=== PATIENT | female | born 1955 | race Caucasian/White ===

== ENCOUNTER 2025-01-28 19:19 | Emergency (ER) | payer BC ==
[~2025-01-28] VITALS: Ht 157.5 cm; Wt 67.1 kg
[2025-01-28 20:15] LABS: BASOPHILS ABSOLUTE AUTO 0.03 K/mm3 (0.00-0.23); BASOPHILS PERCENT AUTO 1 % (0-2); EOSINOPHILS ABSOLUTE AUTO 0.12 K/mm3 (0.00-0.68); EOSINOPHILS PERCENT AUTO 3 % (0-6); Hematocrit 34.8 % (33.0-51.0); Hemoglobin 11.4 g/dL (11.5-16.0); IMMATURE GRAN ABSOLUTE AUTO 0.08 K/mm3 (0.00-0.10); IMMATURE GRAN PERCENT AUTO 2 % (0-1); LYMPHOCYTES ABSOLUTE AUTO 0.98 K/mm3 (0.84-5.20); LYMPHOCYTES PERCENT AUTO 23 % (21-46); MONOCYTES ABSOLUTE AUTO 0.71 K/mm3 (0.16-1.47); MONOCYTES PERCENT AUTO 17 % (4-13); Mean Corpuscular HGB Conc 32.8 g/dL (31.5-36.5); Mean Corpuscular Volume 90 fL (80-100); NEUTROPHILS ABSOLUTE AUTO 2.28 K/mm3 (1.96-9.15); NEUTROPHILS PERCENT AUTO 54 % (41-73); NRBC ABSOLUTE 0.00 K/mm3 (0.00-0.02); NRBC Auto 0.0 /100 WBC (0.0-0.2); Platelet Count 177 K/mm3 (150-400); RDW Coefficient Variation 13.3 % (11.7-14.2); RDW Standard Deviation 43.8 fL (35.1-46.3)
[2025-01-28] MEDS ORDERED: TIZA4 PO (20:17)
[2025-01-28] MEDS ORDERED: PREG300 PO (20:17)
[2025-01-28 20:42] LABS: Alanine Aminotransfer (ALT/SGP 34.0 U/L (12-78); Albumin, Blood 3.3 g/dL (3.4-5.0); Albumin/Globulin Ratio 1.2 (0.8-1.8); Anion Gap 7.0 mmol/L (3-11); Aspartate Aminotrans (AST/SGOT 33.0 U/L (12-37); Bilirubin, Total 0.3 mg/dL (0.1-1.0); Blood Urea Nitrogen 20.0 mg/dL (8-24); CO2, Blood 27.0 mmol/L (21-32); Calcium, Blood 8.2 mg/dL (8.5-10.1); Chloride, Blood 112.0 mmol/L (98-108); Creatinine, Blood 1.2 mg/dL (0.40-1.00); Globulin, Blood 2.8 g/dL (2.2-4.0); Glucose, Blood 70.0 mg/dL (70-99); Potassium, Blood 3.7 mmol/L (3.5-5.5); Sodium, Blood 142.0 mmol/L (136-145); Total Protein, Blood 6.1 g/dL (6.4-8.2)
[2025-01-28] MEDS ORDERED: DiphenhydrAMINE HCl 50 MG/ML 1ML Vial IV ONE (22:05)
[2025-01-28] MEDS ORDERED: Prochlorperazine Edisylate 10 mg Vial IV ONE (22:05)
[2025-01-28] MEDS ORDERED: Ketorolac Tromethamine 15mg Vial IV ONE (22:05)
== END 2025-01-28 23:35 | disposition home or self-care (01) ==
LOC: ER 19:19
PROVIDERS: Emergency Medicine
DX: R51.9 Headache, unspecified (principal)
CPT/HCPCS: 70450; 80053; 85025; 93005; 93010; 96374; 96375; 99284-25; J0780; J1200; J1885

== ENCOUNTER 2025-04-23 14:25 | Inpatient (IN) | payer BC ==
[~2025-04-23] VITALS: Ht 160 cm; Wt 66.4 kg
[~2025-04-23 14:25] MED LIST: PREG300 PO; TIZA4 PO
[2025-04-23] MEDS ORDERED: FLU VACC TS2025(65UP)/MF59C/PF 45 MCG/0.5 ML SYRINGE IM SCH (16:05)
[2025-04-23] MEDS ORDERED: CefTRIAXone Sodium 1,000 MG in NS 100 ML IV SCH (17:00)
[2025-04-23] MEDS ORDERED: NS 1,000 ML IV SCH (17:00)
[2025-04-23 18:46] VITALS: BP 125/66
--- NOTE | 2025-04-23 19:14 | NUR ---
pt to room at 1845. pleasant, alert. husb at bedside. pt coughing. vss. iv infusing at 125 per orders. pt [facility] has recently dropped blood sugars from normal to 40's. advised jennifer hernandez. pt lungs crackles bases. r/a. pt [facility] has about 5 more days left on monitoring. bed in low position, call lite in reach, calls approp
[2025-04-23] MEDS ORDERED: Guaifenesin/Dextromethorphan Syrup 5 ML UDC PO PRN (20:25)
[2025-04-24 00:24] VITALS: BP 119/76
[2025-04-24 03:47] VITALS: BP 110/74
[2025-04-24 04:36] LABS: Hematocrit 27.1 % (33.0-51.0); Hemoglobin 9.0 g/dL (11.5-16.0); Mean Corpuscular HGB Conc 33.2 g/dL (31.5-36.5); Mean Corpuscular Volume 87 fL (80-100); NRBC ABSOLUTE 0.00 K/mm3 (0.00-0.02); NRBC Auto 0.0 /100 WBC (0.0-0.2); Platelet Count 210 K/mm3 (150-400); RDW Coefficient Variation 13.2 % (11.7-14.2); RDW Standard Deviation 42.4 fL (35.1-46.3)
[2025-04-24 05:07] LABS: Anion Gap 7.0 mmol/L (3-11); Blood Urea Nitrogen 11.0 mg/dL (8-24); CO2, Blood 28.0 mmol/L (21-32); Calcium, Blood 7.9 mg/dL (8.5-10.1); Chloride, Blood 106.0 mmol/L (98-108); Creatinine, Blood 0.79 mg/dL (0.40-1.00); Glucose, Blood 86.0 mg/dL (70-99); Potassium, Blood 3.7 mmol/L (3.5-5.5); Sodium, Blood 137.0 mmol/L (136-145)
--- NOTE | 2025-04-24 05:32 | NUR ---
SHIFT SUMMARY: PT AOX4, IND/ SBA IN THE ROOM JUST TO MANAGE LINES. HACKING, NONPRODUCTIVE COUGH, WHICH HAS BEEN CAUSING HER DISCOMFORT. PROVIDER NOTIFIED, DANIELLA ORDERED WHICH WE HAVE BEEN GIVING Q4 WITH SOME RELIEF. PT ABLE TO GET SOME SLEEP. SATTING WELL ON RA, VSS. TOLERATING MEDICATIONS WELL. NO ACUTE OVERNIGHT EVENTS. PT IN BED RESTING, BED IN LOWEST POSITION, CALL LIGHT IN REACH, CONTINUING CARE.
[2025-04-24 07:22] VITALS: BP 109/83
[2025-04-24] MEDS ORDERED: Enoxaparin 30 MG/0.3 ML SYR SC SCH (09:00)
[2025-04-24] MEDS ORDERED: Albuterol HFA200 ACT/6.7 GM INH INH PRN (10:30)
[2025-04-24 11:12] LABS: Influenza A/2009-H1 Not Detected (NOT DETECT); SARS-Cov-2 (COVID-19), BioFire Not Detected (NOT DETECT)
[2025-04-24 11:32] VITALS: BP 111/70
[2025-04-24] MEDS ORDERED: BENZ100A PO (13:39)
[2025-04-24 16:29] VITALS: BP 116/74
--- NOTE | 2025-04-24 18:35 | NUR ---
SHIFT SUMMARY PATIENT ALERT AND INTERACTIVE. CONTINUES TO HAVE COUGHING SPELLS. SPUTUM AND RESPIRATORY PANEL COLLECTED. IS AND FLUTTER PROVIDED TO PATIENT AND EDUCATION GIVEN. PATIENT ABLE TO AMBULATE IN THE ROOM INDEPENDENTLY. EDUCATION PROVIDED RELATED TO CONDITION.
[2025-04-24 20:09] VITALS: BP 119/78
[2025-04-25 00:42] VITALS: BP 117/80
--- NOTE | 2025-04-25 05:34 | NUR ---
SHIFT SUMMARY: PT AOX4 IND IN THE ROOM. PLEASANT, CALLS APPROPRIATELY, COOPERATIVE IN CARE. COUGH HAS BEEN PERSISTENT ALTHOUGH MORE PRODUCTIVE THAN YESTERDAY PER PT. STILL CAUSING A LOT OF DISCOMFORT FROM THE COUGHING. TESSALON GIUSEPPE AND ROBAVAIN GIVEN PRN. PT TOLERATING MEDICATIONS WELL. NO ACUTE OVERNIGHT EVENTS. PT IN BED SLEEPING, BED IN LOWEST POSITION, CALL LIGHT IN REACH. CONTINUING CARE.
[2025-04-25 05:56] VITALS: BP 107/68
[2025-04-25 07:26] VITALS: BP 118/80
[2025-04-25] MEDS ORDERED: Enoxaparin 40 MG/0.4 ML SYR SC SCH (09:00)
[2025-04-25] MEDS ORDERED: GUAI600T33 PO (11:04)
[2025-04-25] MEDS ORDERED: DOXY100 PO (11:04)
[2025-04-25] MEDS ORDERED: ALBU90OI INH (11:05)
--- NOTE | 2025-04-25 14:16 | NUR ---
DISCHARGE SUMMARY PATIENT DISCHARGE TO HOME AT 1350. PRINTED AND REVIEWED DISCHARGE INSTRUCTIONS WITH PATIENT, PATIENT VERBALIZED UNDERSTANDING. ALERT ORIENTED X4, VSS. TOLERATED PO AND VOIDING. DENIED PAIN. CHECK BELONGINGS IN ROOM AND RETURNED TO PATIENT. PATIENT LEFT VIA WHEELCHAIR WITH PEGGY NEWMAN.
== END 2025-04-25 13:50 | disposition home or self-care (01) | DRG 871 ==
LOC: ER 14:25 → MEDS 16:02
PROVIDERS: ADMIT Internal Medicine
DX: A41.89 Other specified sepsis (principal); J12.89 Other viral pneumonia; J96.01 Acute respiratory failure with hypoxia; J44.0 Chronic obstructive pulmonary disease with (acute) lower respiratory infection; F31.9 Bipolar disorder, unspecified; E78.5 Hyperlipidemia, unspecified; M19.90 Unspecified osteoarthritis, unspecified site; R65.20 Severe sepsis without septic shock; J20.6 Acute bronchitis due to rhinovirus; Z87.891 Personal history of nicotine dependence; Z86.19 Personal history of other infectious and parasitic diseases; Z88.5 Allergy status to narcotic agent; Z79.899 Other long term (current) drug therapy
CPT/HCPCS: 0202U; 36415; 80048; 83605; 83880; 85027; 87070; 87205; 93005; 93010; 94640; 94664; 94760; 99285; A9270; C1751; J0456; J0696; J1650; J7030; J7050

== ENCOUNTER 2025-06-10 01:00 | Emergency (ER) | payer BC ==
[~2025-06-10] VITALS: Ht 154.9 cm; Wt 65.8 kg
[~2025-06-10 01:00] MED LIST changes: +ALBU90OI INH; +BENZ100A PO; +DOXY100 PO; +GUAI600T33 PO
[2025-06-10] MEDS ORDERED: NS 1,000 ML IV SCH (01:10)
[2025-06-10 01:25] LABS: BASOPHILS ABSOLUTE AUTO 0.01 K/mm3 (0.00-0.23); BASOPHILS PERCENT AUTO 0 % (0-2); EOSINOPHILS ABSOLUTE AUTO 0.12 K/mm3 (0.00-0.68); EOSINOPHILS PERCENT AUTO 5 % (0-6); Hematocrit 30.4 % (33.0-51.0); Hemoglobin 9.7 g/dL (11.5-16.0); IMMATURE GRAN ABSOLUTE AUTO 0.04 K/mm3 (0.00-0.10); IMMATURE GRAN PERCENT AUTO 2 % (0-1); LYMPHOCYTES ABSOLUTE AUTO 0.91 K/mm3 (0.84-5.20); LYMPHOCYTES PERCENT AUTO 35 % (21-46); MONOCYTES ABSOLUTE AUTO 0.46 K/mm3 (0.16-1.47); MONOCYTES PERCENT AUTO 17 % (4-13); Mean Corpuscular HGB Conc 31.9 g/dL (31.5-36.5); Mean Corpuscular Volume 89 fL (80-100); NEUTROPHILS ABSOLUTE AUTO 1.10 K/mm3 (1.96-9.15); NEUTROPHILS PERCENT AUTO 42 % (41-73); NRBC ABSOLUTE 0.00 K/mm3 (0.00-0.02); NRBC Auto 0.0 /100 WBC (0.0-0.2); Platelet Count 105 K/mm3 (150-400); RDW Coefficient Variation 14.4 % (11.7-14.2); RDW Standard Deviation 46.7 fL (35.1-46.3)
[2025-06-10 01:44] LABS: Alanine Aminotransfer (ALT/SGP 645.0 U/L (12-78); Albumin, Blood 2.9 g/dL (3.4-5.0); Albumin/Globulin Ratio 1.4 (0.8-1.8); Anion Gap 7.0 mmol/L (3-11); Aspartate Aminotrans (AST/SGOT 379.0 U/L (12-37); Bilirubin, Total 0.5 mg/dL (0.1-1.0); Blood Urea Nitrogen 23.0 mg/dL (8-24); CO2, Blood 28.0 mmol/L (21-32); Calcium, Blood 7.4 mg/dL (8.5-10.1); Chloride, Blood 107.0 mmol/L (98-108); Creatinine, Blood 1.05 mg/dL (0.40-1.00); Globulin, Blood 2.0 g/dL (2.2-4.0); Glucose, Blood 81.0 mg/dL (70-99); Potassium, Blood 3.9 mmol/L (3.5-5.5); Sodium, Blood 138.0 mmol/L (136-145); Total Protein, Blood 4.9 g/dL (6.4-8.2)
[2025-06-10 02:19] LABS: Acetaminophen, Random 6.2 ug/mL (10.0-30.0)
[2025-06-10] MEDS ORDERED: HYDHCL25 PO (02:23)
== END 2025-06-10 04:19 | disposition home or self-care (01) ==
LOC: ER 01:00
PROVIDERS: Emergency Medicine
DX: I95.9 Hypotension, unspecified (principal); L29.9 Pruritus, unspecified; R42 Dizziness and giddiness; T40.2X5A Adverse effect of other opioids, initial encounter; T45.0X5A Adverse effect of antiallergic and antiemetic drugs, initial encounter; D61.818 Other pancytopenia; R74.01 Elevation of levels of liver transaminase levels; Z88.5 Allergy status to narcotic agent; Z79.899 Other long term (current) drug therapy
CPT/HCPCS: 80053; 80320; 83605; 84484; 85025; 93005; 93010; 96360; 99285-25; A9270; G0480; J7030

== ENCOUNTER 2025-06-13 15:43 | Emergency (ER) | payer BC ==
[~2025-06-13] VITALS: Ht 157.5 cm; Wt 65.8 kg
[~2025-06-13 15:43] MED LIST changes: +HYDHCL25 PO
[2025-06-13 16:09] LABS: BASOPHILS ABSOLUTE AUTO 0.02 K/mm3 (0.00-0.23); BASOPHILS PERCENT AUTO 1 % (0-2); EOSINOPHILS ABSOLUTE AUTO 0.13 K/mm3 (0.00-0.68); EOSINOPHILS PERCENT AUTO 4 % (0-6); Hematocrit 28.4 % (33.0-51.0); Hemoglobin 9.1 g/dL (11.5-16.0); IMMATURE GRAN ABSOLUTE AUTO 0.05 K/mm3 (0.00-0.10); IMMATURE GRAN PERCENT AUTO 2 % (0-1); LYMPHOCYTES ABSOLUTE AUTO 1.06 K/mm3 (0.84-5.20); LYMPHOCYTES PERCENT AUTO 33 % (21-46); MONOCYTES ABSOLUTE AUTO 0.66 K/mm3 (0.16-1.47); MONOCYTES PERCENT AUTO 20 % (4-13); Mean Corpuscular HGB Conc 32.0 g/dL (31.5-36.5); Mean Corpuscular Volume 90 fL (80-100); NEUTROPHILS ABSOLUTE AUTO 1.32 K/mm3 (1.96-9.15); NEUTROPHILS PERCENT AUTO 41 % (41-73); NRBC ABSOLUTE 0.00 K/mm3 (0.00-0.02); NRBC Auto 0.0 /100 WBC (0.0-0.2); Platelet Count 137 K/mm3 (150-400); RDW Coefficient Variation 14.5 % (11.7-14.2); RDW Standard Deviation 48.0 fL (35.1-46.3)
[2025-06-13 16:37] LABS: Alanine Aminotransfer (ALT/SGP 262.0 U/L (12-78); Albumin, Blood 2.9 g/dL (3.4-5.0); Albumin/Globulin Ratio 1.4 (0.8-1.8); Anion Gap 7.0 mmol/L (3-11); Aspartate Aminotrans (AST/SGOT 60.0 U/L (12-37); Bilirubin, Total 0.2 mg/dL (0.1-1.0); Blood Urea Nitrogen 22.0 mg/dL (8-24); CO2, Blood 24.0 mmol/L (21-32); Calcium, Blood 8.0 mg/dL (8.5-10.1); Chloride, Blood 110.0 mmol/L (98-108); Creatinine, Blood 1.03 mg/dL (0.40-1.00); Globulin, Blood 2.0 g/dL (2.2-4.0); Glucose, Blood 60.0 mg/dL (70-99); Potassium, Blood 4.0 mmol/L (3.5-5.5); Sodium, Blood 137.0 mmol/L (136-145); Total Protein, Blood 4.9 g/dL (6.4-8.2)
[2025-06-13 22:35] LABS: Source, Urine Clean Catch
[2025-06-13 23:21] LABS: Bilirubin, Urine Neg (Neg); Glucose Qualitative, Urine Neg (Neg); Ketones, Urine Neg (Neg); Leukocyte Esterase, Urine Neg (Neg); Protein, Urine Neg (Neg); Specific Gravity, Urine 1.005 (1.003-1.022); Urobilinogen, Urine NORM (Normal)
[2025-06-13 23:28] LABS: Color, Urine Pale Yellow (P-Yellow)
[2025-06-17 09:49] LABS: HEPATITIS A ANTIBODY, IGM Negative (Negative); HEPATITIS C AB CIA INTERP Low Pos (Negative); HEPATITIS C ANTIBODY CIA INDEX 9.16 IV
[2025-06-18 11:28] LABS: HCV QNT BY NAAT (IU/ML) Not Detected; HCV QNT BY NAAT (LOG IU/ML) Not Detected; HCV QNT BY NAAT INTERP Not Detected (Not Detected)
== END 2025-06-14 00:20 | disposition home or self-care (01) ==
LOC: ER 15:43
PROVIDERS: Student in an Organized Health Care Education/Training Program
DX: E16.2 Hypoglycemia, unspecified (principal); D61.818 Other pancytopenia; R74.01 Elevation of levels of liver transaminase levels; M19.90 Unspecified osteoarthritis, unspecified site; F43.10 Post-traumatic stress disorder, unspecified; Z87.891 Personal history of nicotine dependence; Z79.899 Other long term (current) drug therapy; Z88.5 Allergy status to narcotic agent
CPT/HCPCS: 71046; 71260; 74177; 76705; 80053; 80074; 81003; 83880; 84484; 85025; 87522; 93005; 93010; 99285-25; J7120; Q9967